=== PATIENT | female | born 1960 | race Caucasian/White ===

== ENCOUNTER 2021-07-12 15:36 | Emergency (ER) | payer MEDICARE ==
[2014-02-10 16:51] VITALS: BP 118/68
== END 2021-07-12 20:01 | disposition left against medical advice (07) ==
LOC: ER 15:36
DX: Z20.822 Contact with and (suspected) exposure to COVID-19 (principal); M79.10 Myalgia, unspecified site; Z53.21 Procedure and treatment not carried out due to patient leaving prior to being seen by health care provider